=== PATIENT | female | born 1985 | race African-American/Black ===

== ENCOUNTER 2018-05-22 09:15 | Emergency (ER) | payer OTHER ==
[~2018-05-22] VITALS: Ht 154.9 cm; Wt 92.5 kg
[2018-05-22 09:27] VITALS: Ht 154.9 cm; Wt 92.5 kg
[2018-05-22 10:23] VITALS: BP 152/99
== END 2018-05-22 10:22 | disposition home or self-care (01) ==
LOC: ED 09:15
DX: T22.652A Corrosion of second degree of left shoulder, initial encounter (principal); Z98.890 Other specified postprocedural states; X19.XXXA Contact with other heat and hot substances, initial encounter; Y93.89 Activity, other specified; Y92.89 Other specified places as the place of occurrence of the external cause; Y99.8 Other external cause status
CPT/HCPCS: 90715

== ENCOUNTER 2018-06-28 17:46 | Emergency (ER) | payer OTHER ==
[~2018-06-28] VITALS: Ht 154.9 cm; Wt 93.0 kg
[2018-06-28 18:42] LABS: BASOPHIL % 0.5 % (0-2); PLATELET COUNT 321 x10^3mcL (130-400)
[2018-06-28 18:43] LABS: RED CELL DISTRIBUTION WIDTH 15.6 % (11.5-14.5)
[2018-06-28 18:45] LABS: CALCIUM 8.3 mg/dL (8.5-10.1); CARBON DIOXIDE 29.1 mmol/L (21-32); CHLORIDE SERUM 105 mmol/L (98-107); CREATININE SERUM 0.9 mg/dL (0.6-1.0); GFR1 > 60 mL/min; GLUCOSE SERUM 115 mg/dL (74-106); SODIUM SERUM 143 mmol/L (136-145)
[2018-06-28 18:48] LABS: POTASSIUM SERUM 2.9 mmol/L (3.5-5.1)
[2018-06-28 20:13] VITALS: BP 154/106
== END 2018-06-28 20:13 | disposition home or self-care (01) ==
LOC: ED 17:46
PROVIDERS: Emergency Medicine
DX: J06.9 Acute upper respiratory infection, unspecified (principal); G43.909 Migraine, unspecified, not intractable, without status migrainosus; Z86.2 Personal history of diseases of the blood and blood-forming organs and certain disorders involving the immune mechanism

== ENCOUNTER 2019-03-28 07:27 | Inpatient (IN) | payer OTHER ==
[~2019-03-28] VITALS: Ht 154.9 cm; Wt 83.9 kg
[2019-03-28 07:29] VITALS: Ht 154.9 cm; Wt 83.9 kg
--- NOTE | 2019-03-28 07:36 | NUR ---
PT WALKED TO ROOM 9 IN STEADY GAIT.
--- NOTE | 2019-03-28 07:42 | NUR ---
DR CORDERO BEDSIDE TO EXAMINE PT.
[2019-03-28 08:10] LABS: BASOPHIL % 0.2 % (0-2); PLATELET COUNT 311 x10^3mcL (130-400)
[2019-03-28 08:14] LABS: CALCIUM 8.6 mg/dL (8.5-10.1); CARBON DIOXIDE 23.4 mmol/L (21-32); CHLORIDE SERUM 101 mmol/L (98-107); GFR1 > 60 mL/min; GLUCOSE SERUM 133 mg/dL (74-106); POTASSIUM SERUM 3.8 mmol/L (3.5-5.1); SODIUM SERUM 137 mmol/L (136-145)
[2019-03-28 08:19] LABS: ALBUMIN 3.6 g/dL (3.4-5.0); ALKALINE PHOSPHATASE 67 U/L (46-116); ALT/SGPT 30 U/L (14-59); AST/SGOT 25 U/L (15-37); BILIRUBIN TOTAL 0.61 mg/dL (0.20-1.00); LIPASE 60 IU/L (73-393); TOTAL PROTEIN, SERUM 8.7 g/dL (6.4-8.2)
--- NOTE | 2019-03-28 08:20 | NUR ---
SL STARTED @ G22. NS0.9% STARTED TO RUN. PAIN MEDICATION GIVEN IVP.
[2019-03-28 08:45] LABS: RED CELL DISTRIBUTION WIDTH 15.3 % (11.5-14.5)
[2019-03-28 09:36] LABS: microscopic required? YES; urine erythrocyte 1+ (NEGATIVE)
--- NOTE | 2019-03-28 12:13 | NUR ---
PT WAS TAKEN TO CT.
--- NOTE | 2019-03-28 15:42 | NUR ---
XRAY OF ABDOMEN WITH PO CONTRAST WAS DONE BEDSIDE. PT WAS ADMITED TO TELE. ROOM 221A. REPORT WAS CALLED AND GIVEN TO ZINA. FAJARDO.
[2019-03-28 15:51] LABS: AMPHETAMINE QUAL UR NONE DETECTED (See below)
[2019-03-28 16:02] LABS: PHOSPHOROUS 2.7 mg/dL (2.5-4.9)
[2019-03-28 16:40] VITALS: BP 160/84
--- NOTE | 2019-03-28 16:45 | NUR ---
RECEIVED PT FROM ED VIA STEPAN. ORIENTED PT TO ROOM AND SURROUNDINGS. IV NOTED TO RH PATENT NAD INTACT. INSTRUCTED PT ON THE USE OF CALL LIGHT FOR ASSISTANCE. ENDORSED PT TO PRIMARY NURSE ANA
--- NOTE | 2019-03-28 17:01 | NUR ---
PATIENT RESTING IN BED NO DISTRESS NOTED, POC EXPLAINED, TECH AT BEDSIDE PERFORM EKG, IVF NS AT 100ML/HR STARTED TO RH IV PATENT, ZOFRAN 4MG IVP ADMINISTERED FOR NAUSEA, NO VOMITING. ICE CHIPS GIVEN PER REQUEST. CALL LIGHT WITHIN REACH.
--- NOTE | 2019-03-28 18:01 | NUR ---
MEDICATE FOR 8/10 ABD PAIN, PT RESTING IN BED WITH FAMILY MEMBERS AT BEDSIDE. REPORT NAUSEA SUBSIDED. CONT TO MONITOR.
--- NOTE | 2019-03-28 18:22 | NUR ---
PATIENT RESTING IN BED, ROCEPHIN 1GM IVPB STARTED, TECH AT BEDSIDE PERFORM 3HRS SBFT. WILL BE BACK IN 3HRS. FAMILY MEMBERS REMAIN AT BEDSIDE.
--- NOTE | 2019-03-28 19:15 | NUR ---
RECEIVED PT LAYING IN BED, NO ACUTE DISTRESS OBSEREVED. C/O INTERMITTENT N/V AND ABD PAIN, DENIES ANY AT THIS TIME. ABD ROUND AND SOFT WITH ACTIVE BOWEL SOUNDS, SMALL BOWEL FOLLOW THROUGH IN PROGRESS, NEXT FILM AT APPROXIMATELY 2100, WILL ANTICIPATE. AA/OX4, ABLE TO MAKE NEEDS KNOWN, SPEECH CLEAR AND APPROPRIATE. MED-SURG, NO TELE, NO CP. PULSES PRESENT AND EQUAL THROUGHOUT, NO EDEMA NOTED. BREATHING ON RA, EVEN AND UNLABORED, NO SOB OR DYSPNEA NOTED. FREELY VOIDS URINE WITH BRP. AMBULATORY AND ABLE TO REPOSITION SELF AT THIS TIME. PT IS NPO ORDERED. IV TO RH IN PLACE, INFUSING IVF WELL, NO PAIN, REDNESS OR SWELLING NOTED. COMFORT AND SAFETY MEASURES IN PLACE. ALL NEEDS ASSESSED AND ATTENDED TO. CALL LIGHT WITHIN REACH. WILL CONTINUE TO MONITOR.
[2019-03-28 19:52] VITALS: BP 137/79
--- NOTE | 2019-03-28 21:56 | NUR ---
DR. MCCOY MADE AWARE OF PT'S SMALL BOWEL FOLLOW THROUGH RESULTS REQUESTED. PER DR. MCCOY, SHE WILL LET DR. SPICER KNOW THE RESULTS. NO FURTHER ORDERS AT THIS TIME
[2019-03-29 05:26] VITALS: BP 120/71
--- NOTE | 2019-03-29 05:30 | NUR ---
PT SIGNED FORM FOR DISCLOSURE OF HEALTH INFO FROM DR. KWAME BARRAZA AT [facility] ORDERED. GIVEN TO [employer] TO BE FAXED
--- NOTE | 2019-03-29 05:45 | NUR ---
NO SIGNIFICANT CHANGES TO REPORT, PT COMPLIED WITH NURSING CARE THROUGHOUT THE SHIFT WITH NO ACUTE EVENTS OVERNIGHT. PT LAYING IN BED, BREATHING EVEN AND UNLABORED, NO ACUTE DISTRESS OBSERVED AT THIS TIME. COMFORT AND SAFETY MEASURES MAINTAINED. ALL NEEDS ASSESSED AND ATTENDED TO. CALL LIGHT WITHIN REACH. WILL CONTINUE TO MONITOR AND ENDORSE CARE TO DAY SHIFT NURSE
--- NOTE | 2019-03-29 07:15 | NUR ---
RECIEVED PT RESTING IN BED WITH NO C/O PAIN, DISTRESS, OR SOB. A/OX4 NO CUELLO OR DIZZINESS. NS RUNNING AT 100ML/HR IN RH, INTACT AND PATENT WITH NO REDNESS OR INFLAMMATION NOTED. SAFETY PRECAUTIONS IN PLACE, CALL LIGHT WITHIN REACH, WILL MONITOR.
[2019-03-29 07:23] LABS: BASOPHIL % 0.2 % (0-2); PLATELET COUNT 278 x10^3mcL (130-400)
[2019-03-29 07:50] LABS: CALCIUM 7.9 mg/dL (8.5-10.1); CARBON DIOXIDE 23.9 mmol/L (21-32); CHLORIDE SERUM 107 mmol/L (98-107); CREATININE SERUM 0.9 mg/dL (0.6-1.0); GFR1 > 60 mL/min; GLUCOSE SERUM 84 mg/dL (74-106); MAGNESIUM 2.2 mg/dL (1.8-2.4); PHOSPHOROUS 2.4 mg/dL (2.5-4.9); POTASSIUM SERUM 3.5 mmol/L (3.5-5.1); SODIUM SERUM 142 mmol/L (136-145)
[2019-03-29 07:51] LABS: RED CELL DISTRIBUTION WIDTH 15.5 % (11.5-14.5)
[2019-03-29 08:49] VITALS: BP 129/69
--- NOTE | 2019-03-29 11:01 | NUR ---
PT RESTING COMFORTABLY IN BED. DENIES AND PAIN, DISTRESS, OR SOB. DIET NOW FULL LIQUIDS. SAFETY PRECAUTIONS IN PLACE, CALL LIGHT WITHIN REACH, WILL CONTINUE TO MONITOR.
--- NOTE | 2019-03-29 13:15 | NUR ---
PT C/O 12/07 CUELLO, MEDICATED WITH TYLENOL PER EMAR, WILL REASSESS.
[2019-03-29 14:28] VITALS: BP 129/69
--- NOTE | 2019-03-29 15:04 | NUR ---
PT STABLE TO DISCHARGE PER MD ORDER. VS WNL. NO DISTRESS, PAIN, OR SOB NOTED. ALL DISCHARGE INSTRUCTIONS AND EDUCATION GIVEN TO PT AND SHE VERBALIZES UNDERSTANDING. PT WAITING FOR RIDE. WILL REMOVE IV WHEN RIDE ARRIVES.
--- NOTE | 2019-03-29 15:44 | NUR ---
PT RIDE ARRIVED. IV REMOVED WITH CATHETER INTACT, NO REDNES OR INFLAMMATION NOTED. ID BAND REMOVED AND PT ESCORTED DOWN TO LOBBY BY BRITTANY GOMEZ AND FRIEND AT SIDE.
== END 2019-03-29 15:42 | disposition home or self-care (01) | DRG 386 ==
LOC: ED 07:27 → MU 15:10
PROVIDERS: Emergency Medicine; ADMIT Internal Medicine
DX: K50.90 Crohn's disease, unspecified, without complications (principal); N39.0 Urinary tract infection, site not specified; K52.9 Noninfective gastroenteritis and colitis, unspecified; G43.909 Migraine, unspecified, not intractable, without status migrainosus; Z68.37 Body mass index [BMI] 37.0-37.9, adult; Z98.0 Intestinal bypass and anastomosis status; Z86.010 Personal history of colon polyps; Z80.0 Family history of malignant neoplasm of digestive organs
CPT/HCPCS: G0378; J0696; J2405; J2920; J2930; J3010; J7030; Q0092; Q9967